=== PATIENT | male | born 1975 | race Two or more races ===

== ENCOUNTER → 2017-09-08 | Outpatient (CLI) | payer OTHER ==
[~2017-09-08] MED LIST: AML5T PO; LISI-711 PO
[2017-09-08 08:12] LABS: Urine RBC None Seen /hpf (0 - 3)
[2017-09-08 08:34] LABS: Basophils # (auto) 0 uL; Basophils % (auto) 0.4 % (0.0-2.0); Eosinophils # (auto) 0.1 uL; Eosinophils % (auto) 1.3 % (0.0-7.0); Hematocrit 43.9 % (41.0-53.0); Hemoglobin 15.1 g/dL (13.5-17.5); Lymphocytes # (auto) 2.3 uL; Lymphocytes % (auto) 27.4 % (10.0-50.0); Mean Corpuscular Hemoglobin 29.9 pg (28.0-32.0); Mean Corpuscular Hgb Conc. 34.3 g/dL (32.0-36.0); Mean Corpuscular Volume 87.1 fL (80.0-100.0); Mean Platelet Volume 9.1 fL (6.9-10.8); Monocytes # (auto) 0.5 uL; Neutrophils # (auto) 5.4 uL; Neutrophils % (auto) 64.9 % (37.0-80.0); Nucleated Red Blood Cells % 0.1 %; Platelet Count (auto) 278 10^3/uL (140-450); Red Cell Distribution Width 13.4 % (11.8-14.3); White Blood Cell 8.3 10^3/uL (4.4-10.8)
[2017-09-08 08:35] LABS: Urine Bilirubin Negative (Negative); Urine Blood Negative /uL (Negative); Urine Color Yellow (Yellow); Urine Glucose Normal (Normal); Urine Ketone Negative (Negative); Urine Mucus FEW (None Seen); Urine Nitrite Negative (Negative); Urine Squamous Epithelial Cell FEW /hpf (<5); Urine Urobilinogen Normal (Negative)
[2017-09-08 08:55] LABS: Albumin 4.1 g/dL (3.4-5.0); BUN/Creatinine Ratio 10.8; Bilirubin, Total 0.7 mg/dL (0.2-1.0); Calcium 8.9 mg/dL (8.5-10.1); Potassium 3.6 mmol/L (3.5-5.1); Total Protein 8.1 g/dL (6.4-8.2)
== END | disposition home or self-care (01) ==
LOC: LAB 06:43
PROVIDERS: ATTEND Internal Medicine
DX: I10 Essential (primary) hypertension (principal); E11.9 Type 2 diabetes mellitus without complications; E78.2 Mixed hyperlipidemia; E55.9 Vitamin D deficiency, unspecified
CPT/HCPCS: 36415; 80053; 80061; 81001; 82043; 82306; 83036; 85025